=== PATIENT | female | born 1980 | race African-American/Black ===

== ENCOUNTER 2018-01-19 15:00 | Emergency (ER) | payer SELFPAY ==
[~2018-01-19] VITALS: Ht 175.3 cm; Wt 63.0 kg
[2018-01-19] MEDS ORDERED: IBUPROFEN 600MG TABLET PO ONE (17:30)
[2018-01-19 19:03] VITALS: BP 148/86
== END 2018-01-19 19:05 | disposition home or self-care (01) ==
LOC: ER 15:00
DX: M25.571 Pain in right ankle and joints of right foot (principal); M79.671 Pain in right foot; F12.10 Cannabis abuse, uncomplicated; X58.XXXA Exposure to other specified factors, initial encounter; Y93.89 Activity, other specified; Y92.488 Other paved roadways as the place of occurrence of the external cause
CPT/HCPCS: 73610; 73630; 99284